=== PATIENT | female | born 1995 | race Caucasian/White ===

== ENCOUNTER 2019-10-20 17:15 | Inpatient (IN) | payer BC ==
[2019-10-20 18:30] VITALS: BMI 31.7
[2019-10-20 18:47] LABS: BASO % 0.5 % (0-2.0); EOS % 0.7 % (0-4.5); HEMATOCRIT 35.1 % (32.4-45.2); HEMOGLOBIN 11.7 GM/dL (10.7-15.3); LYMPH % 23.5 % (8-40); MCH 27.5 pg (25.7-33.7); MCHC 33.3 g/dl (32.0-36.0); MEAN CELL VOLUME 82.8 fl (80-96); MEAN PLT VOLUME 10.4 fl (7.5-11.1); MONO % 6.7 % (3.8-10.2); NEUT % 68.6 % (42.8-82.8); PLATELET COUNT 207 K/MM3 (134-434); RBC 4.24 M/mm3 (3.60-5.2); RDW 17.2 % (11.6-15.6)
[2019-10-20 19:01] LABS: INR 0.91 (0.83-1.09); PROTHROMBIN TIME (PATIENT) 10.7 SEC (9.7-13.0)
[2019-10-20 19:03] LABS: ACTIVATED PTT 24.1 SECONDS (25.2-36.5)
[2019-10-20 19:15] LABS: BLOOD UREA NITROGEN 7.8 mg/dL (7-18); CALCIUM 9.4 mg/dL (8.5-10.1); CREATININE 0.5 mg/dL (0.55-1.3); POTASSIUM 3.8 mmol/L (3.5-5.1)
--- NOTE | 2019-10-20 20:51 | HP ---
Past Medical History - Primary Care Physician PCP:: William Fuentes E - Admission Chief Complaint: postdates History of Present Illness: First baby; uneventful gestation. GBS neg. 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: Alzheimer's, CVA, Dementia, Migraine, Multiple Sclerosis, Peripheral Neuropathy, Parkinson's, Seizure, Syncope, TIA, Vertigo, Other Cardiovascular: No: AFIB, Aneurysm, Aortic Insufficiency, Aortic Stenosis, CAD, CHF, Deep Vein Thrombosis, HTN, Hyperlipdemia, NC, Mitral Insufficiency, Mitral Stenosis, Murmur, Pulmonary Hypertension, Other Pulmonary: No: Asthma, Bronchitis, Cancer, COPD, O2 Dependent, Pneumonia, Previously Intubated, Pulmonary Embolus, Pulmonary Fibrosis, Sleep Apnea, Other Gastrointestinal: No: Ascites, Cancer, Constipation, Crohn's Disease, Diverticulitis, Diverticulosis, Esophageal Varices, Gastritis, GERD, GI Bleed, Hemorrhoids, Hiatal Hernia, Inflamatory Bowel Disease, Irritable Bowel Disease, Pancreatitis, Peptic Ulcer Disease, Ulcerative Colitis, Other ...: 3 ...Para: 0 ...Term: 0 ...: 0 ...Spon : 0 ...Induced : 2 ...Living Children: 0 ...Multiple Gestation: 0 ...LMP: 01/09/19 ... Weeks Gestation by Dates: 40.4 ...EDC by Dates: 10/16/19 ...EDC by Sono: 10/16/19 Heme/Onc: No: Anemia, B12 Deficiency, Bleeding Disorder, Cancer, Current Chemotherapy, Current Radiation Therapy, Hemochromatosis, Hypercoaguable State, Myeloproliferative Synd, Sickle Cell Disease, Sickle Cell Trait, Thrombocytopenia, Other Infectious Disease: No: AIDS, C-Diff, Herpes Zoster, HIV, MRSA, STD's, Tuberculosis, VREF, Other Psych: No: Addictions, Anxiety, Bipolar, Depression, Panic, Psychosis, Schizophrenia, Other Musculoskeletal: No: Bursitis, Chronic low back pain, Hemiparesis, Hemiplegia, Osteoarthritis, Paraplegia, Other Rheumatology: No: Fibromyalgia, Gout, Lupus, Rheumatoid Arthritis, Sarcoidosis, Vasculitis, Other ENT: No: Allergic Rhinitis, Sinusitis, Other Endocrine: No: Willy's Disease, Baxter's Disease, Diabetes Insipidus, Diabetes Mellitus, Hyperparathyroidism, Hyperthyroidism, Hypothyroidism, Osteopenia, SIADH, Other - Past Surgical History Past Surgical History: No: None, AAA Repair, AICD, Amputation, Appendectomy, Art hrosocopy, AV Fistula/Graft, Bariatric Surgery, Breast Biopsy, Bypass, CABG, Carotid Endarterectomy, Cataract Removal, Cholecystectomy, Colectomy, Colonoscopy, Colostomy, Craniotomy, , Cystectomy, Hernia Repair, Hysterectomy, Ileal Conduit, Ileosotomy, Joint Replacement, Kidney Transplant, Laminectomy, Liver Transplant, Mastectomy, Nephrectomy, Oopherectomy, Orchiectomy, Permanent Pacemaker, Prostatectomy, Splenectomy, Stent, Thoracotomy, TURP, Tonsillectomy, Tubal Ligation, Upper Endoscopy, Valve Replacement, Vasectomy, Vein Stripping/Ligation Hx Myomectomy: No Hx Transabdominal Cerclage: No - Smoking History Smoking history: Never smoked Have you smoked in the past 12 months: No - Alcohol/Substance Use Hx Alcohol Use: No History of Substance Use: reports: None - Social History History of Recent Travel: No Home Medications - Allergies Allergies/Adverse Reactions: Allergies Allergy/AdvReac Type Severity Reaction Status Date / Time amoxicillin Allergy Severe Rash Verified 10/20/19 18:50 - Home Medications Home Medications: Ambulatory Orders No122/Iron/Folic Acid [ Multi Tablet] 1 each PO DAILY 08/22/19 Albuterol Sulfate Inhaler - [Ventolin HFA Inhaler -] 2 inhaler PO PRN PRN 10/20/19 Loratadine 10 mg PO DAILY 10/20/19 Valacyclovir HCl [Valtrex -] 500 mg PO BID 10/20/19 Family Medical History Family History: Unremarkable Review of Systems - Review of Systems Constitutional: reports: No Symptoms Eyes: reports: No Symptoms HENT: reports: No Symptoms Neck: reports: No Symptoms Cardiovascular: reports: No Symptoms Respiratory: reports: No Symptoms Gastrointestinal: reports: No Symptoms Genitourinary: reports: No Symptoms Breasts: reports: No Symptoms Reported Musculoskeletal: reports: No Symptoms Integumentary: reports: No Symptoms Neurological: reports: No Symptoms Endocrine: reports: No Symptoms Hematology/Lymphatic: reports: No Symptoms Psychiatric: reports: No Symptoms Physical Exam - Maternity Vital Signs: Vital Signs Temperature 98.6 F 10/20/19 20:00 Pulse Rate 85 10/20/19 20:00 Respiratory Rate 18 10/20/19 20:00 Blood Pressure 100/65 10/20/19 20:00 O2 Sat by Pulse Oximetry (%) Constitutional: Yes: Well Nourished, No Distress, Calm Eyes: Yes: WNL, Conjunctiva Clear, EOM Intact HENT: Yes: WNL, Atraumatic, Normocephalic Neck: Yes: WNL, Supple, Trachea Midline Cardiovascular: Yes: WNL, Regular Rate and Rhythm Breast(s): Yes: WNL - Abdominal Exam/OB Fundal Height: 41 Number of Fetuses: Single Presentation: Vertex Contractions: No Monitor Mode: External Heart Rate (range): 140 Heart Rate Location: [facility] Category: I Accelerations: Uniform Decelerations: None - Vaginal Exam/OB Vaginal Bleeding: No Dilatation (cm): 0 Effacement (%): 0 Amniotic Membrane Status: Intact Presentation: Vertex/Position Station: -1 - Physical Exam Musculoskeletal: Yes: WNL Extremities: Yes: WNL Integumentary: Yes: WNL Deep Tendon Reflex Grade: Hyperactive,very brisk +4 - Labs Lab Results: CBC, BMP 10/20/19 18:36 10/20/19 18:36 Problem List - Problems (1) Post-dates Code(s): O48.0 - POST-TERM Assessment/Plan For induction tomorrow. Cervidil placed. All fully discused w pt and her SO.
[2019-10-20] MEDS ORDERED: DINOPROSTONE 10 MG VAGINAL SUPPOSITORY VG ONE (20:52)
[2019-10-20] MEDS ORDERED: ZOLPIDEM TARTRATE 5 MG TABLET PO ONE (23:29)
[2019-10-21] MEDS ORDERED: ZOLPIDEM TARTRATE 5 MG TABLET ONE (01:45)
[2019-10-21] MEDS: ELECTROLYTE-148 SOLN 1,000 ML IV SCH ×2 (03:00→06:00)
--- NOTE | 2019-10-21 07:13 | PN ---
Progress Note, Labor Vaginal Exam #2 Labor Exam Date: 10/21/19 Labor Exam Time: 07:00 Heart Rate (range): 135 Dilatation: 0 Effacement (%): 0 Amniotic Membrane Status: Intact Presentation: Vertex/Position Station: -1 Remarks: Starting Pitocin.
[2019-10-21] MEDS ORDERED: OXYTOCIN 30 UNITS in 0.9% NS 30 UNIT/500 ML INFUS.BAG IVPB SCH ×2 (07:15→20:45)
[2019-10-21] MEDS ORDERED: PCA PUMP NR ONE ×2 (08:45→21:48)
[2019-10-21] MEDS ORDERED: FENTANYL/BUPIVACAINE/NS/PF - PCEA - 50 ML DISP.SYRIN EP ONE ×3 (08:46→17:23)
--- NOTE | 2019-10-21 08:51 | PN ---
Progress Note, Labor Vaginal Exam #2 Labor Exam Date: 10/21/19 Labor Exam Time: 08:40 Dilatation: 0.5 Effacement (%): 20 Amniotic Membrane Status: Intact Presentation: Vertex/Position Station: -1 Remarks: Pt is in pain. Ctx are picking up. AROM - clear. Epidural, continuous explained. Requested.
[2019-10-21] MEDS ORDERED: LIDO 2%/EPI 1:200000 PRESRVFRE (20 ML SDVIAL) ONE ×2 (09:01→17:54)
[2019-10-21] MEDS ORDERED: BUPIVACAINE HCL/PF 0.25% (2.5MG/ML) 10 ML VIAL ONE ×2 (09:01→15:57)
[2019-10-21] MEDS ORDERED: LIDOCAINE HCL 1% PRESERVATIVE FREE - 30ML VIAL ONE ×2 (09:07→19:35)
[2019-10-21] MEDS ORDERED: NALOXONE HCL 0.4 MG/ML VIAL IVPUSH PRN (09:31)
[2019-10-21] MEDS ORDERED: FENTANYL/BUPIVACAINE/NS/PF - PCEA - 50 ML DISP.SYRIN EP SCH (09:45)
--- NOTE | 2019-10-21 18:47 | PN ---
Progress Note, Labor Vaginal Exam #3 Labor Exam Date: 10/21/19 Labor Exam Time: 18:40 Heart Rate (range): 140 Dilatation: 9 Effacement (%): 100 Presentation: Vertex/Position Station: 0 Remarks: ROP to ROT
[2019-10-21] MEDS ORDERED: OXYTOCIN 20 UNITS in 0.9% NS 20 UNIT/1,000 ML INFUS.BAG IV ONE (19:35)
--- NOTE | 2019-10-21 19:35 | PN ---
Progress Note, Labor Vaginal Exam #4 Labor Exam Date: 10/21/19 Labor Exam Time: 19:30 Dilatation: 10 Effacement (%): 100 Station: +1 Remarks: Start pushing. Rotating ROT to SAIDA.
[2019-10-21] MEDS ORDERED: BISACODYL 10 MG SUPP.RECT RC PRN (20:37)
[2019-10-21] MEDS ORDERED: METHYLERGONOVINE MALEATE 0.2 MG/1 ML AMP IM PRN (20:37)
[2019-10-21] MEDS ORDERED: WITCH HAZEL 50% (TUCKS) 40 PAD/JAR PAD TP PRN (20:37)
[2019-10-21] MEDS ORDERED: BENZOCAINE 28 GM HEMORRHOIDAL OINTMENT TP PRN (20:37)
[2019-10-21] MEDS ORDERED: BENZOCAINE 20% 57 GM BOTTLE TP PRN (20:37)
--- NOTE | 2019-10-21 20:37 | PN ---
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 Cord delayed clamping, divided by the FOB. No epis., no lacer.
[2019-10-21] MEDS ORDERED: IBUPROFEN 600 MG TABLET (FP) PO ONE (21:48)
[2019-10-21] MEDS: IBUPROFEN 600 MG TABLET (FP) PO PRN (21:54)
[2019-10-22 08:03] LABS: BASO % 0.2 % (0-2.0); EOS % 0.2 % (0-4.5); HEMATOCRIT 31.2 % (32.4-45.2); LYMPH % 13.3 % (8-40); MCH 26.1 pg (25.7-33.7); MCHC 31.9 g/dl (32.0-36.0); MEAN CELL VOLUME 81.9 fl (80-96); MEAN PLT VOLUME 10.7 fl (7.5-11.1); MONO % 6.9 % (3.8-10.2); NEUT % 79.4 % (42.8-82.8); PLATELET COUNT 173 K/MM3 (134-434); RBC 3.81 M/mm3 (3.60-5.2); RDW 17.9 % (11.6-15.6); WHITE BLOOD COUNT 16.3 K/mm3 (4.0-10.0)
--- NOTE | 2019-10-22 09:31 | PN ---
Progress Note (short form) - Note Progress Note: day #1. Vital signs stable. Patient is doing very well. Happy and proud. Uterus well contracted. Lochia normal. Breasts soft. Perineum intact. Impression: excellent recovery. Plan: Discharge tomorrow if baby is okay. Problem List - Problems (1) Post-dates Code(s): O48.0 - POST-TERM
[2019-10-22] MEDS: IBUPROFEN 600 MG TABLET (FP) PO PRN (15:28)
[2019-10-22] MEDS: ACETAMINOPHEN 325 MG TABLET (FP) PO PRN (15:29)
[2019-10-22] MEDS ORDERED: SENNOSIDES/DOCUSATE COMBO (SENNA PLUS) TABLET (UD) PO PRN (22:00)
[2019-10-23] MEDS: ACETAMINOPHEN 325 MG TABLET (FP) PO PRN (09:46)
[2019-10-23] MEDS: IBUPROFEN 600 MG TABLET (FP) PO PRN (09:47)
--- NOTE | 2019-10-23 11:08 | PN ---
Progress Note (short form) - Note Progress Note: Doing great. Happy. Exam WNL. Instructed. Discharge. Problem List - Problems (1) Post-dates Code(s): O48.0 - POST-TERM
--- NOTE | 2019-10-23 11:11 | DS ---
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: Vital Signs Temperature 97.8 F 10/22/19 22:00 Pulse Rate 87 10/22/19 22:00 Respiratory Rate 18 10/22/19 22:00 Blood Pressure 102/70 10/22/19 22:00 O2 Sat by Pulse Oximetry (%) 99 10/22/19 06:00 Constitutional: Yes: Well Nourished, No Distress, Calm Eyes: Yes: WNL, Conjunctiva Clear, EOM Intact HENT: Yes: WNL, Atraumatic, Normocephalic Neck: Yes: WNL, Supple, Trachea Midline Cardiovascular: Yes: WNL, Regular Rate and Rhythm Respiratory: Yes: WNL, Regular, CTA Bilaterally Gastrointestinal: Yes: WNL ...Rectal Exam: Yes: WNL Renal/: Yes: WNL Breast(s): Yes: WNL Musculoskeletal: Yes: WNL Extremities: Yes: WNL Integumentary: Yes: WNL Neurological: Yes: WNL, Alert, Oriented ...Motor Strength: WNL Psychiatric: Yes: WNL, Alert, Oriented Labs: CBC, BMP 10/22/19 07:37 10/20/19 18:36 Delivery - Delivery Vaginal Delivery: No Problems, Spontaneous Type of Anesthesia: Epidural Episiotomy/Laceration: None EBL (cc): 200 Delivery, Single - Stages of Labor Date 1st Stage Initiatied: 10/20/19 Time 1st Stage Initiated: 20:00 Date 2nd Stage Initiated: 10/21/19 Time 2nd Stage Initiated: 19:50 Date of Delivery: 10/21/19 Time of Delivery: 20:20 Time Placenta Delivered: 20:25 Placenta: Yes: Spontaneous, Normal Configuration - 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 Instructed. Discharge. Discharge Summary Problems reviewed: Yes Reason For Visit: INDUCTION OF LABOR Current Active Problems Post-dates (Acute) Hospital Course: OK Condition: Good - Instructions Diet, Activity, Other Instructions: Physical activity Resume your normal everyday activity as tolerated no heavy lifting or exercise until seen by your surgeon. You may walk unlimited maikol of and climb stairs. You may resume driving the car when you feel safe and comfortable behind the wheel. No sexual activity as instructed. Diet There are no dietary restrictions. Eat healthy, high-fiber foods. Drink 6 to 8 glasses of liquid each day. This will assist in keeping your bowels are regular. Pain management You may take Tylenol or acetaminophen or Ibuprofen (for example, Motrin, Advil etc.) from my pain prescription medication is ordered should be taken as prescribed for moderate to severe pain. Call MD for any of the following: Severe pain not relieved by medication Fever of 101 or higher Excessive bleeding or drainage on dressing Inability to urinate [phone] Disposition: HOME - Home Medications Comprehensive Discharge Medication List: Ambulatory Orders No122/Iron/Folic Acid [ Multi Tablet] 1 each PO DAILY 08/22/19 Albuterol Sulfate Inhaler - [Ventolin HFA Inhaler -] 2 inhaler PO PRN PRN 10/20/19 Loratadine 10 mg PO DAILY 10/20/19 Valacyclovir HCl [Valtrex -] 500 mg PO BID 10/20/19
[2019-10-23 11:43] VITALS: BP 111/71; PULSE 69; TEMP 98
== END 2019-10-23 13:30 | disposition home or self-care (01) | DRG 807 ==
LOC: JLDR 17:15 → J3W 10-21 21:52
PROVIDERS: ADMIT Specialist; ATTEND Specialist
PROC: 10E0XZZ Delivery of Products of Conception, External Approach (ICD-10-PCS; principal; 2019-10-21)
DX: O48.0 Post-term pregnancy (principal); Z37.0 Single live birth; Z3A.40 40 weeks gestation of pregnancy
CPT/HCPCS: 36415; 59409; 80048; 85025; 85610; 85730; 86780; 86850; 86870; 86900; 86901; 86902